=== PATIENT | male | born 1975 | race Caucasian/White ===

== ENCOUNTER 2019-03-17 08:51 | Outpatient (REF) | payer BC, SELFPAY ==
[2019-03-17 13:44] LABS: Cholesterol 243 mg/dL (50-200); Glucose 114 mg/dL (70-100); HDL Cholesterol 61 mg/dL (40-60); LDL CHOLESTEROL 152 mg/dL (<100); Triglyceride 127 mg/dL (30-150)
== END 2019-03-17 09:11 ==
LOC: NCHCN 08:51
PROVIDERS: PCP Internal Medicine; Visit Provider Nurse Practitioner Family
DX: Z13.1 Encounter for screening for diabetes mellitus (principal); Z13.220 Encounter for screening for lipoid disorders
CPT/HCPCS: 80061; 82947; 83721

== ENCOUNTER 2020-07-25 22:10 | Outpatient (REF) | payer BC, SELFPAY ==
[2020-07-25 22:33] LABS: Calculated LDL 172 mg/dL (<100); Cholesterol 269 mg/dL (<200); Glucose 104 mg/dL (74-106); HDL Cholesterol 50 mg/dL (40-60); Triglyceride 237 mg/dL (<150)
== END 2020-07-25 22:30 ==
LOC: NCHCN 22:10
PROVIDERS: PCP Internal Medicine; Visit Provider Nurse Practitioner Family
DX: Z00.00 Encounter for general adult medical examination without abnormal findings (principal); Z13.1 Encounter for screening for diabetes mellitus; Z13.220 Encounter for screening for lipoid disorders
CPT/HCPCS: 80061; 82947

== ENCOUNTER 2021-12-23 20:25 | Emergency (ER) | payer BC, SELFPAY ==
[2021-12-23 20:29] VITALS: BP 145/105; PULSE 115; RESP 24; TEMP 36.5; O2SAT 97
[2021-12-23] MEDS: Ondansetron O.D.T. 4 MG TABEF PO (20:40)
--- NOTE | 2021-12-23 20:45 | DI.RAD_ITS ---
Exam(s) XR HAND LT COMPLETE EXAM: XR HAND LT COMPLETE CLINICAL HISTORY: Laceration, R/O Foreign body, Fracture. TECHNIQUE: 2D digital imaging was performed of the left hand. Three views were obtained. AP, later al and oblique views were obtained. COMPARISON: No exams were available for comparison FINDINGS: BONES: No acute fracture is present. No bony destructive lesion is seen. JOINTS: No dislocation present. SOFT TISSUE: There is a laceration with subcutaneous air and soft tissue swelling in the webspace bet ween the 3rd and 4th fingers. No radiopaque foreign bodies are identified. IMPRESSION: Soft tissue laceration in the webspace between the 3rd and 4th fingers. No radiopaque foreign body. DATA REPOSITORY: RADIATION DOSE DELIVERED:
--- NOTE | 2021-12-23 21:07 | W.ED.GENAD ---
Discharge Plan Disposition Patient Disposition: HOME Condition: Stable Discharge Details Clinical Impression: Laceration of hand, left Primary Care Provider: Holden Carmona ED Provider: Nury Barroso Home Meds and New Rx's Prescriptions: New cephalexin 500 mg tablet 500 mg PO BID 7 Days Qty: 14 0RF No Action sulfamethoxazole-trimethoprim [Bactrim DS] 1 EACH tablet 2 ea PO BID Qty: 40 0RF hydrocodone-acetaminophen 1 EACH tablet 1 ea PO Q6H PRN Qty: 14 0RF Discharge Instructions Instructions: Laceration (ED) Additional Instructions: Please have sutures removed in 10 days. Take the antibiotic twice daily as directed. Return for any signs of infection including increased redness, red streaks, drainage or increased pain. Please follow-up with orthopedics for reevaluation in approximately 5 to 7 days. The numbing medication will wear off in approximately 2 to 3 hours. Please take Tylenol or Ibuprofen with food every 4-6 hours as needed for pain and swelling. Stand Alone Forms: Work Release Referrals: Laurent Dumont MD [ [facility] STAFF PHYSICIAN] - 1 week Holden Carmona MD [Primary Care Provider] - 1 week Medical Decision Making 46-year-old male presents to the ER with a left hand laceration which occurred prior to arrival. Patient states he fell down the stairs and sliced his hand on metal edge which was holding the carpet down. He has approximately 6 cm laceration through the web of his left ring and middle finger. Distal sensation and circulation and movement is intact. He reports his last tetanus shot was less than 10 years ago. He is wearing a wedding ring on his ring finger which was removed upon his arrival to the department. 2108: Laceration infiltrated with 1% lidocaine with epi, patient tolerated well. Ring removed with packing gauze by member of technical staff. Imaging ordered to rule out fracture or foreign body. Imaging protocol: XR Left hand. Views: 3 or more views. Total images: 3 COMPARISON: No relevant prior studies available. FINDINGS: Bones/joints: No fractures. No blastic or lytic lesions. No articular erosive changes. Soft tissues: No periostitis or osteolysis. Soft tissue air and swelling in the distal hand between the proximal 3rd and 4th fingers consistent with laceration. No radiopaque foreign bodies. Other findings: Carpal relationships are normal. Distal radioulnar alignment is normal. IMPRESSION: 1. No fracture or foreign body. 2. Soft tissue laceration in the distal hand between the proximal 3rd and 4th fingers. Thank you for allowing us to participate in the care of your patient. Dictated and Authenticated by: Alex Mathews MD [id number]: Laceration repaired with 11 simple interrupted sutures. Was anesthetized with 1% lidocaine with epi patient tolerated well. Anesthesia achieved. Will place patient in erasmo tape and give cephalexin here. Discussed follow-up with orthopedics, verbalized understanding. Instructed to have sutures removed in 10 days. Patient given cephalexin and 2 tablets to go prescription written. This text was generated using [employer] system, please disregard any oddities of phrase or misspellings. HPI General Date/Time Provider Initiated Documentation: 12/23/21 20:31. HPI Narrative: 46-year-old male presents to the ER with a left hand laceration which occurred prior to arrival. Patient states he fell down the stairs and sliced his hand on metal edge which was holding the carpet down. He has approximately 6 cm laceration through the web of his left ring and middle finger. Distal sensation and circulation and movement is intact. He reports his last tetanus shot was less than 10 years ago. He is wearing a wedding ring on his ring finger which was removed upon his arrival to the department. Related Data Home Medications Medication Instructions Recorded Confirmed hydrocodone 5 mg-acetaminophen 325 1 ea PO Q6H PRN #14 tablet 05/22/14 mg tablet sulfamethoxazole 800 2 ea PO BID #40 tablet 05/22/14 mg-trimethoprim 160 mg tablet (Bactrim DS) cephalexin 500 mg tablet 500 mg PO BID 7 Days #14 tab 12/23/21 Previous Rx's Medication Instructions Recorded hydrocodone 5 mg-acetaminophen 325 1 ea PO Q6H PRN #14 tablet 05/22/14 mg tablet sulfamethoxazole 800 2 ea PO BID #40 tablet 05/22/14 mg-trimethoprim 160 mg tablet (Bactrim DS) cephalexin 500 mg tablet 500 mg PO BID 7 Days #14 tab 12/23/21 Allergies Allergy/AdvReac Type Severity Reaction Status Date / Time No Known Allergies Allergy Unverified 05/22/14 15:38 General Stated Complaint: Laceration DONNA: 4 Review of Systems All systems reviewed & are unremarkable except as noted in HPI and below Integumentary/Breasts Skin/Breast: Reports wounds PFSH All Active Problems (Updated 12/23/21 @ 22:16 by Nury Barroso) Laceration of hand, left (Acute) Social History Smoking/Tobacco Use Status: Current every day Smoking risk assessment performed?: Yes Drug use: Never Do you feel safe at home: Yes Do you feel safe in your relationship?: Yes Exam Extrem Left upper extremity: hand Details: laceration (Full-thickness laceration between the third and fourth digits in the webspace. Extends from the dorsum to the palm) palm palmar aspect Details: irregular, involving subcutaneous tissue, with motor nerve function intact and with sensation intact; Negative for no foreign body present Hand/finger images: 1. Laceration, linear 2. Full-thickness laceration noted between the web space. Approximately 6 cm in length Course Vital Signs Vital signs: Vital Signs Temperature 36.5 C 12/23/21 20:29 Pulse 115 H 12/23/21 20:29 Respiratory Rate 24 12/23/21 20:29 Blood Pressure 145/105 H 12/23/21 20:29 Pulse Oximetry 97 12/23/21 20:29 Temperature 36.5 C 12/23/21 20:29 Temperature Source Temporal Artery Scan 12/23/21 20:29 Pulse 115 H 12/23/21 20:29 Respiratory Rate 24 12/23/21 20:29 Respiratory Effort 12/23/21 20:35 Blood Pressure 145/105 H 12/23/21 20:29 Blood Pressure Position Standing 12/23/21 20:29 Pulse Oximetry 97 12/23/21 20:29 Oxygen Delivery Method Room Air 12/23/21 20:29 Oxygen Flow Rate 0 12/23/21 20:29 Pain Level 9 12/23/21 20:29 Procedures Laceration Laceration 1: Site: hand (Left between 3rd and 4th digits) Side (If applicable): left Size (cm): 6 Description: irregular and clean Depth: simple, single layer Local Anesthetic: Lidocaine 1% and with Epi Amount of anesthesia used (mL): 5 Pre-repair: wound explored, irrigated extensively and deep structures intact Skin layer closed with: nylon Size (cm): 4-0 Number of sutures: 11 Technique: simple, interrupted PAWSS Have you Been Recently Intoxicated or Drunk Within the Last 30 days?: No Have you Ever Experienced Previous Episodes of Alcohol Withdrawal?: No Have you ever Experienced Withdrawal Seizures?: No Have you ever Experienced Delirium Tremens(DT)s?: No Have you ever undergone Alcohol Rehabilitation Treatment (i.e, inpt ot outpatient treatment programs)?: No Have you ever Experienced Blackouts?: No Have you ever Combined Alcohol with other Downers within the last 90 days?: No Have you ever Combined Alcohol with any other Substance of Abuse during the last 90 days?: No Positive Blood Alcohol level on Presentation? [PCS.BAL]: No Evidence of Increased Autonomic Activity (i.e. HR>120, tremor, sweating, agitation, nausea)?: No Result: 0
--- NOTE | 2021-12-23 21:35 | DI.VRAD_ITS ---
PROCEDURE INFORMATION: Exam: XR Left Hand Exam date and time: 12/23/2021 8:53 PM Age: 46 years old Clinical indication: Other: Laceration R/O foreign body fracture TECHNIQUE: Imaging protocol: XR Left hand. Views: 3 or more views. Total images: 3 COMPARISON: No relevant prior studies available. FINDINGS: Bones/joints: No fractures. No blastic or lytic lesions. No articular erosive changes. Soft tissues: No periostitis or osteolysis. Soft tissue air and swelling in the distal hand between the proximal 3rd and 4th fingers consistent with laceration. No radiopaque foreign bodies. Other findings: Carpal relationships are normal. Distal radioulnar alignment is normal. IMPRESSION: 1. No fracture or foreign body. 2. Soft tissue laceration in the distal hand between the proximal 3rd and 4th fingers. Dictated and Authenticated by: Alex Mathews MD. Ordering:ZACKARY Arrington MD
[2021-12-23] MEDS: Cephalexin 500 MG CAP, 2 CAPS/BTL PO (22:22)
[2021-12-23] MEDS: Cephalexin 500 MG CAP PO (22:22)
[2021-12-23 22:24] VITALS: BP 132/79; PULSE 84; RESP 18; TEMP 36.6; O2SAT 99
== END 2021-12-23 22:28 | disposition home or self-care (01) ==
PROVIDERS: Emergency Provider Registered Nurse Emergency; PCP Internal Medicine
DX: S61.412A Laceration without foreign body of left hand, initial encounter (principal); W26.8XXA Contact with other sharp object(s), not elsewhere classified, initial encounter
CPT/HCPCS: 12002; 99283; 73130

== ENCOUNTER 2022-07-27 09:33 | Outpatient (REF) | payer BC, SELFPAY ==
[2022-07-27 20:42] LABS: ALT 29 U/L (16-63); AST 21 U/L (15-37); Albumin 4.2 g/dL (3.4-5.0); Alkaline Phosphatase 82 U/L (46-116); Anion Gap 12.4 mmol/L (3-11); BUN 20 mg/dL (7-18); Bilirubin, Total 0.8 mg/dL (0.2-1.0); CO2 27.6 mmol/L (21.0-32.0); Calcium 9.3 mg/dL (8.5-10.1); Calculated LDL 163 mg/dL (<100); Chloride 100 mmol/L (98-107); Cholesterol 260 mg/dL (<200); Estimated GFR 95.18 (mL/min/1.73m2); Glucose 109 mg/dL (74-106); HDL Cholesterol 69 mg/dL (40-60); Potassium 4.3 mmol/L (3.5-5.1); Sodium 140 mmol/L (136-145); Triglyceride 143 mg/dL (<150)
== END 2022-07-27 09:34 | disposition home or self-care (01) ==
LOC: NCHCN 09:33
PROVIDERS: PCP Internal Medicine; Visit Provider Nurse Practitioner Family
DX: R73.03 Prediabetes (principal); E78.5 Hyperlipidemia, unspecified; E78.1 Pure hyperglyceridemia; Z00.00 Encounter for general adult medical examination without abnormal findings
CPT/HCPCS: 80053; 80061

== ENCOUNTER 2023-07-30 19:02 | Outpatient (REF) | payer BC, SELFPAY ==
[2023-07-30 15:51] LABS: HGB 15.3 g/dL (13.5-17.5); MCH 28.2 pg (27.0-33.0); MCV 83 fL (80-95); Platelet Count 216 10^3/uL (130-400); RBC 5.42 10^6/uL (4.36-5.78); RDW 12.3 % (11.8-14.1); RDW-SD 37.2 fL; WBC 5.33 10^3/uL (4.4-10.8)
[2023-07-30 16:03] LABS: ALT 38 U/L (16-63); AST 25 U/L (15-37); Albumin 4.1 g/dL (3.4-5.0); Alkaline Phosphatase 91 U/L (46-116); Anion Gap 8.9 mmol/L (3-11); BUN 17 mg/dL (7-18); Bilirubin, Total 0.7 mg/dL (0.2-1.0); CO2 29.1 mmol/L (21.0-32.0); Calcium 9.4 mg/dL (8.5-10.1); Calculated LDL 156 mg/dL (<100); Chloride 100 mmol/L (98-107); Cholesterol 257 mg/dL (<200); Estimated GFR 94.59 (mL/min/1.73m2); Glucose 107 mg/dL (74-106); HDL Cholesterol 65 mg/dL (40-60); Sodium 138 mmol/L (136-145); Total Protein 7.6 g/dL (6.4-8.2); Triglyceride 181 mg/dL (<150)
== END 2023-07-30 19:03 | disposition home or self-care (01) ==
LOC: NCHCN 19:02
PROVIDERS: PCP Internal Medicine; Visit Provider Nurse Practitioner Family
DX: Z00.00 Encounter for general adult medical examination without abnormal findings (principal); Z13.220 Encounter for screening for lipoid disorders; Z13.0 Encounter for screening for diseases of the blood and blood-forming organs and certain disorders involving the immune mechanism; Z13.228 Encounter for screening for other metabolic disorders
CPT/HCPCS: 80053; 80061; 85027

== ENCOUNTER 2025-07-23 10:20 | Outpatient (REF) | payer SELFPAY ==
[2025-07-23 15:06] LABS: HCT 49.3 % (40.0-50.0); HGB 17.0 g/dL (13.5-17.5); MCH 28.4 pg (27.0-33.0); MCHC 34.5 % (32.0-36.0); MCV 82 fL (80-95); MPV 11.0 fL (8.0-11.0); Platelet Count 229 10^3/uL (130-400); RBC 5.99 10^6/uL (4.36-5.78); RDW 12.3 % (11.8-14.1); RDW-SD 37.2 fL; WBC 5.00 10^3/uL (4.4-10.8)
[2025-07-23 15:59] LABS: ALT 31 U/L (16-63); AST 26 U/L (15-37); Albumin 4.3 g/dL (3.4-5.0); Alkaline Phosphatase 85 U/L (46-116); Anion Gap 9.0 mmol/L (3-11); BUN 16 mg/dL (7-18); Bilirubin, Total 0.8 mg/dL (0.2-1.0); CO2 28.0 mmol/L (21.0-32.0); Calcium 9.3 mg/dL (8.5-10.1); Chloride 101 mmol/L (98-107); Estimated GFR 93.42 (mL/min/1.73m2); Glucose 98 mg/dL (74-106); Potassium 4.2 mmol/L (3.5-5.1); Sodium 138 mmol/L (136-145); Total Protein 7.7 g/dL (6.4-8.2)
[2025-07-23 16:32] LABS: Calculated LDL 168 mg/dL (<100); Cholesterol 261 mg/dL (<200); HDL Cholesterol 61 mg/dL (>or=40); Triglyceride 161 mg/dL (<150)
== END 2025-07-23 10:21 | disposition home or self-care (01) ==
LOC: NCHCN 10:20
PROVIDERS: PCP Internal Medicine; Visit Provider Nurse Practitioner Family
DX: Z00.00 Encounter for general adult medical examination without abnormal findings (principal); E78.5 Hyperlipidemia, unspecified
CPT/HCPCS: 80053; 80061; 85027